=== PATIENT | female | born 1990 | race Caucasian/White ===

== ENCOUNTER 2022-04-15 09:46 | Outpatient (CLI) | payer BC, SELFPAY | END 2022-04-15 09:47 | disposition home or self-care (01) | LOC: LKVREF 09:47 | PROVIDERS: PCP Emergency Medicine; Visit Provider Emergency Medicine | DX: L73.9 Follicular disorder, unspecified (principal) | CPT/HCPCS: 87070 ==

== ENCOUNTER 2022-04-30 14:59 | Outpatient (CLI) | payer BC, SELFPAY | END 2022-04-30 15:00 | disposition home or self-care (01) | LOC: LKVLAB 14:59 | PROVIDERS: PCP Emergency Medicine; Visit Provider Emergency Medicine | DX: E03.9 Hypothyroidism, unspecified (principal) | CPT/HCPCS: 36415; 84443 ==

== ENCOUNTER 2022-08-24 16:38 | Outpatient (CLI) | payer BC, SELFPAY | END 2022-08-24 16:39 | disposition home or self-care (01) | PROVIDERS: PCP Emergency Medicine; Visit Provider Emergency Medicine | DX: E03.9 Hypothyroidism, unspecified (principal) | CPT/HCPCS: 84443 ==

== ENCOUNTER 2022-09-23 11:21 | Outpatient (CLI) | payer BC, SELFPAY ==
[2022-09-23 22:16] LABS: Albumin* 4.8 g/dL (3.3-5.0)
[2022-09-23 22:17] LABS: Chloride* 107 mmol/L (96-114); Potassium* 4.9 mmol/L (3.6-5.1); Sodium* 140 mmol/L (135-149)
[2022-09-23 22:19] LABS: Creatinine* 0.7 mg/dL (0.5-1.5); Estimated Glomerular Filt Rate 117 ml/min
[2022-09-23 22:20] LABS: Alanine Aminotransferase* 18 U/L (4-35); Alkaline Phosphatase* 57 U/L (40-150); Aspartate Amino Transferase* 33 U/L (12-35); Bilirubin Total* 0.6 mg/dL (0.1-1.5); Blood Urea Nitrogen* 13 mg/dL (5-24); Calcium* 9.8 mg/dL (8.4-10.6); Carbon Dioxide* 27 mmol/L (20-32); Glucose* 99 mg/dL (60-115); Total Protein* 7.2 g/dL (6.0-8.3)
== END 2022-09-23 11:22 | disposition home or self-care (01) ==
PROVIDERS: PCP Emergency Medicine; Visit Provider Dermatology
DX: L40.9 Psoriasis, unspecified (principal)
CPT/HCPCS: 80053; 86480

== ENCOUNTER 2023-07-07 13:23 | Outpatient (CLI) | payer BC, SELFPAY | END 2023-07-07 13:24 | disposition home or self-care (01) | PROVIDERS: PCP Emergency Medicine; Visit Provider Emergency Medicine | DX: E03.8 Other specified hypothyroidism (principal); N92.0 Excessive and frequent menstruation with regular cycle; Z13.220 Encounter for screening for lipoid disorders | CPT/HCPCS: 82728; 84439; 84443 ==

== ENCOUNTER 2023-07-14 08:20 | Outpatient (CLI) | payer BC, SELFPAY | END 2023-07-14 08:21 | disposition home or self-care (01) | LOC: NFLDREF 07-17 23:49 | PROVIDERS: PCP Emergency Medicine; Referring Provider Emergency Medicine; Visit Provider Emergency Medicine | DX: Z13.1 Encounter for screening for diabetes mellitus (principal); Z13.6 Encounter for screening for cardiovascular disorders | CPT/HCPCS: 80061; 82947 ==

== ENCOUNTER 2023-11-07 13:51 | Outpatient (REF) | payer BC, SELFPAY | END 2023-11-07 13:52 | disposition home or self-care (01) | LOC: NFLDREF 13:51 | PROVIDERS: PCP Emergency Medicine; Visit Provider Emergency Medicine | DX: E03.9 Hypothyroidism, unspecified (principal) | CPT/HCPCS: 84439; 84443 ==

== ENCOUNTER 2024-03-20 14:13 | Outpatient (CLI) | payer BC, SELFPAY | END 2024-03-20 14:14 | disposition home or self-care (01) | LOC: LKVREF 14:14 | PROVIDERS: PCP Emergency Medicine; Visit Provider Emergency Medicine | DX: E06.3 Autoimmune thyroiditis (principal) | CPT/HCPCS: 84443; 86480 ==

== ENCOUNTER 2024-10-31 10:49 | Outpatient (CLI) | payer BC, SELFPAY | END 2024-10-31 10:50 | disposition home or self-care (01) | PROVIDERS: PCP Emergency Medicine; Visit Provider Emergency Medicine | DX: E03.9 Hypothyroidism, unspecified (principal); I10 Essential (primary) hypertension | CPT/HCPCS: 80048; 84439; 84443 ==

== ENCOUNTER 2025-02-26 09:49 | Outpatient (CLI) | payer BC, SELFPAY | END 2025-02-26 09:50 | disposition home or self-care (01) | LOC: LKVREF 09:50 | PROVIDERS: PCP Emergency Medicine; Visit Provider Emergency Medicine | DX: E03.9 Hypothyroidism, unspecified (principal) | CPT/HCPCS: 84443 ==

== ENCOUNTER 2025-09-16 12:19 | Outpatient (CLI) | payer OTHER, SELFPAY | END 2025-09-16 12:20 | disposition home or self-care (01) | PROVIDERS: Visit Provider Family Medicine | DX: E06.3 Autoimmune thyroiditis (principal); I10 Essential (primary) hypertension | CPT/HCPCS: 80048; 84439; 84443 ==